=== PATIENT | male | born 1950 | race Caucasian/White ===

== ENCOUNTER 2025-04-24 09:02 | Outpatient (RCR) | payer MEDICARE, OTHER, SELFPAY ==
[2025-04-24 09:28] VITALS: BMI 32.1
[2025-04-24 09:30] VITALS: BMI 32.1
== END 2025-07-14 08:45 | disposition home or self-care (01) ==
LOC: ANHDMC 09:02
PROVIDERS: PCP Internal Medicine; Visit Provider Internal Medicine
DX: E11.9 Type 2 diabetes mellitus without complications (principal); Z71.3 Dietary counseling and surveillance
CPT/HCPCS: 97802